=== PATIENT | female | born 1995 | race African-American/Black ===

== ENCOUNTER 2020-09-14 13:53 | Emergency (ER) | payer OTHER ==
[2020-09-14 14:14] VITALS: BMI 36.1
[2020-09-14] MEDS ORDERED: SODIUM CHLORIDE 1,000 ML IV STA (14:54)
[2020-09-14] MEDS ORDERED: METOCLOPRAMIDE HCL INJECTION 10 MG/2 ML VIAL IVPB ONE (14:55)
[2020-09-14] MEDS ORDERED: FAMOTIDINE 20 MG/50 ML IVPB 20 MG/50 ML MG IVPB ONE ×2 (14:56→15:11)
[2020-09-14] MEDS ORDERED: METOCLOPRAMIDE HCL INJECTION 10 MG/2 ML VIAL ONE (15:11)
[2020-09-14 15:54] LABS: EOS % 0.8 % (0-4.5); HEMATOCRIT 34.7 % (32.4-45.2); HEMOGLOBIN 11.5 GM/dL (10.7-15.3); LYMPH % 23.8 % (8-40); MCHC 33.2 g/dl (32.0-36.0); MEAN CELL VOLUME 87.4 fl (80-96); MEAN PLT VOLUME 9.1 fl (7.5-11.1); MONO % 5.6 % (3.8-10.2); NEUT % 68.8 % (42.8-82.8); PLATELET COUNT 304 10^3/uL (134-434); RBC 3.97 M/mm3 (3.60-5.2); RDW 14.6 % (11.6-15.6); WHITE BLOOD COUNT 8.4 K/mm3 (4.0-10.0)
[2020-09-14 16:05] LABS: ALBUMIN 3.7 g/dl (3.4-5.0); BLOOD UREA NITROGEN 6.6 mg/dL (7-18)
[2020-09-14 16:08] LABS: CREATININE 0.5 mg/dL (0.55-1.3)
[2020-09-14 16:10] LABS: BILIRUBIN,TOTAL 0.4 mg/dL (0.2-1); TOT PROT 7.5 g/dl (6.4-8.2)
[2020-09-14 17:53] VITALS: BP 111/60; PULSE 60; TEMP 97.1
== END 2020-09-14 18:03 | disposition home or self-care (01) ==
LOC: JER 13:53
PROC: 3E033GC Introduction of Other Therapeutic Substance into Peripheral Vein, Percutaneous Approach (ICD-10-PCS; principal; 2020-09-14)
PROC: 3E033GC Introduction of Other Therapeutic Substance into Peripheral Vein, Percutaneous Approach (ICD-10-PCS; 2020-09-14)
PROC: 3E0337Z Introduction of Electrolytic and Water Balance Substance into Peripheral Vein, Percutaneous Approach (ICD-10-PCS; 2020-09-14)
DX: K52.9 Noninfective gastroenteritis and colitis, unspecified (principal); R11.0 Nausea; R19.7 Diarrhea, unspecified
CPT/HCPCS: 36415; 80053; 83690; 84703; 85025; 99284-25; C9803; U0003; U0005